=== PATIENT | female | born 1980 | race African-American/Black ===

== ENCOUNTER 2025-01-19 15:44 | Inpatient (IN) | payer OTHER, SELFPAY ==
[2025-01-19] VITALS (28 sets, daily range): BP systolic 122–204; BP diastolic 26–161; BMI 33.5
--- NOTE | 2025-01-19 11:25 | ED.GENMED ---
History of Present Illness
General
Chief Complaint: Abdominal Symptoms
Source: patient and other ([facility], [facility])
Exam Limitations: none
Time Seen by Provider: 01/19/25 11:19
History of Present Illness
History of Present Illness:
This patient is a 44-year-old female who was brought into police custody and placed in [facility] last night. She admits to a history of fentanyl with xylazine and cocaine use on a daily basis. She smokes approximately a bundle of fentanyl a day and
smokes cocaine. Last use was yesterday afternoon. She woke this morning and felt like she was experiencing withdrawal. She describes feeling restless associated with nausea and vomiting. She denies fever, chills, chest pain, shortness of breath,
abdominal pain. She went to the [facility], and as per VICKY Navarrete patient's blood pressure was 92/58 with a pulse of 114, and noted to have several episodes of nonbloody vomiting which prompted her referral to the emergency department. She was not
given any medications this morning. staff editor did not notice any lip or tongue swelling but noted her to be slightly diaphoretic.
Past History
Past History
ED Past Medical History: None
ED Past Surgical History: None
Social History
Tobacco: Smoker
Alcohol: None
Drug: Cocaine and Narcotics
Living: [facility]
Phy Exam
Physical Exam
Physical Exam:
GENERAL: Alert , appears uncomfortable
EYE: pupils equal and reactive
NECK: Supple, no significant adenopathy.
ENT: o/p clr, mmm, voice clear, no stridor, no drool.
CARDIAC: Regular rate and rhythm, slightly tachycardic.
LUNGS: Clear breath sounds bilaterally, no acute respiratory distress, no wheezes/rales/rhonchi
ABDOMEN: Soft, without focal tenderness, no r/g, no cvat
NEUROLOGICAL: Alert and oriented, no focal neuro deficits, moves all extremities equally
SKIN: Warm and slightly diaphoretic, skin intact.
MUSCULOSKELETAL: No edema, well perfused.
PSYCH: Appears uncomfortable, restless, continuously moving in the bed
Scores
COW Clinical Opiate Withdrawal Scale
Resting Pulse Rate: 81-100
Sweating-over past 30min not from room temp or activity: Beads of sweat on brow or face
Restlessness-observation during assessment: Frequent shifting or extraneous movements of legs/arms
Pupil Size: Pupils pinned or normal size for room light
Bone or Joint Aches: Not present
Runny Nose or Tearing-not accounted for by cold/allergies: Not present
GI Upset-over last 30min: Vomiting or diarrhea
Tremor-observation of outstretched hands: Slight tremor observable
Yawning-observation during assessment: No yawning
Anxiety or Irritability: Patient reports increasing irritability or anxiousness
Gooseflesh Skin: Skin is smooth
Score: 13
Withdrawal Severity: Moderate Withdrawal, consider starting Suboxone
Course
Orders/Labs/Results
Orders:
Orders
01/19/25 11:26
Acetaminophen [Tylenol] 1,000 mg PO NOW STA
Ketorolac [Toradol] 10 mg IV NOW STA
Ondansetron Injectable [Zofran] 4 mg IV NOW STA
Tizanidine [Zanaflex] 2 mg PO NOW STA
01/19/25 11:27
0.9% Sodium Chloride 1000 ml [Nss] 1,000 ml IV BOLUS
01/19/25 11:29
Diphenhydramine [Benadryl] 50 mg .ROUTE .STK-MED ONE
EPINEPHrine PF [Adrenalin] 1 mg .ROUTE .STK-MED ONE
Famotidine [Pepcid] 20 mg .ROUTE .STK-MED ONE
01/19/25 11:40
EPINEPHrine PF [Adrenalin] 0.3 mg IM NOW STA
01/19/25 11:41
Diphenhydramine [Benadryl] 50 mg IV NOW STA
Famotidine [Pepcid] 20 mg IV NOW STA
01/19/25 11:44
Cardiac Monitoring- Treatment ONCE
01/19/25 11:45
Electrocardiogram (*1) Urgent
Reason for Study: QTc Monitoring
EKG- Treatment ONCE
01/19/25 11:56
Buprenorphine [Subutex] 2 mg SL NOW STA
01/19/25 12:04
Buprenorphine HCl [Belbuca] 300 mcg BUCCAL NOW STA
01/19/25 12:50
Test Result ONCE
01/19/25 13:21
Complete Blood Count/No Diff Urgent
01/19/25 13:33
Comprehensive Metabolic Panel Urgent
HCG, Serum Qualitative Screen Urgent
Lipase Urgent
01/19/25 14:03
Ketorolac [Toradol] 10 mg IV NOW STA
Ondansetron Injectable [Zofran] 4 mg IV NOW STA
Tizanidine [Zanaflex] 2 mg PO NOW STA
01/19/25 14:08
EPINEPHrine PF [Adrenalin] 1 mg .ROUTE .STK-MED ONE
01/19/25 14:15
Diphenhydramine [Benadryl] 50 mg .ROUTE .STK-MED ONE
Famotidine [Pepcid] 20 mg .ROUTE .STK-MED ONE
Abnormal Lab Results
01/19/25
13:21
RBC 4.13 L 10^6/uL
(4.20-5.40)
Hct 34.5 L %
(37.0-47.0)
01/19/25 13:21
Vital Signs
Initial and Last Documented VS:
Initial Vital Signs
Temp Pulse Resp BP Pulse Ox
98.9 F 67 16 139/109 100
01/19/25 10:45 01/19/25 10:45 01/19/25 10:45 01/19/25 10:45 01/19/25 10:45
Last Documented Vital Signs
Temp Pulse Resp BP Pulse Ox
98.9 F 66 15 139/109 100
01/19/25 10:45 01/19/25 10:47 01/19/25 10:47 01/19/25 10:45 01/19/25 11:26
*Pulse Oximetry
SaO2: 100
Oxygen Mode of Delivery: Room air
Update Note
Update Note:
Patient presents to the Emergency Department with ____suspected opioid withdrawal
Number and Complexity of Problems Addressed at the Encounter
� Chronic conditions affecting care:
� Acute Exacerbation and/or Progression of Chronic Illness:
� Differential Diagnosis includes: But not limited to fentanyl withdrawal, xylazine/medetomidine withdrawal, cocaine withdrawal, dehydration, pancreatitis, etc. etc. etc.
Amount and/or Complexity of Data to be Reviewed and Analyzed
� I performed an independent evaluation of and my interpretation is:
EKG:
CT:
Xrays:
Laboratory Studies:
Other:
� Review of other/old records reveals:
� Clinical information was obtained by an independent historian: Discussed with VICKY Navarrete at the [facility] who saw patient this morning. She confirms that there was no facial swelling noted at that time. Female captain of guards who
is at bedside states that upon transport she noted mild lower lip swelling.
� Prescriptions/Medications Considered but not given:
� Further testing considered but not performed: 11:59 AM we have been unable to obtain labs at this time. We will continue to try to
Risk of Complications and/or Morbidity or Mortality of Patient Management
� Social determinants of health affecting care:
� Discussion with other providers (PCP, Hospitalists, Consultants, etc):
� Escalation of care including admission/observation vs risk of discharge considered: As RN was placing IV in right upper extremity, I was examining patient. I did note a very mild amount of lower lip swelling, but very mild
without associated symptoms or airway compromise. I left the room, and shortly after RN urgently called me back because patient was noted to have facial swelling. Upon my examination patient had massively increased lip swelling associated with
tongue swelling, and profuse diaphoresis. Patient was maintaining normal sats, no stridor, no drool. No swelling elsewhere noted. She was awake and alert and able to communicate with me. ED staff notified of urgency, airway equipment brought to
bedside while meds retrieved. Within just a few minutes, symptoms spontaneously improved such that she just has very mild lower lip swelling at this time. Patient received epi Benadryl and Pepcid after she was noted to be improved. (Meds were not
available yet while she was still very swollen). The only agents that patient was exposed to was chlorhexidine to clean the area, IV insertion, and saline flush. Patient has received saline in the past without reaction. She denies a history of
angioedema or allergies. She denies prescribed occasions. [facility] staff confirms she was not given any medications since arrival in the [facility] yesterday including this morning. Very close observation here, symptoms have not recurred. It is
unclear what precipitated this episode of severe lip and tongue swelling. She states this is never happened before. We will be very cautious regarding anything that we administer to her here. She is clearly experiencing opioid withdrawal and has
taken Suboxone in the past without difficulty. We will administer a low dose of Suboxone at this time and monitor closely
1:01 PM several reassessments, continues with mild lip swelling, no development increasing or change, airway stable, pulse ox normal, no stridor or drool. Buprenorphine was administered. Will continue to monitor closely.
225pm Pt developed another episode of angioedema, again lasting about 1-2 minutes and spont resolving. One more episode, now fulyl resolved.
ED Attending Note
-
Portions of this chart may have been created with voice recognition software.� Occasional wrong word or��sound alike� substitutions may have occurred due to the inherent limitations of voice recognition software.
Discharge Plan
Departure
Prescriptions:
No Action
clonidine HCl 0.1 mg Tablet
0.1 mg PO DIRECTED
Rx Instructions:
take 1 tablet tid then 1 tablet bid then half a tablet bid
ondansetron HCl [Zofran] 4 mg Tablet
4 mg PO TIDPRN PRN (Reason: nausea)
Rx Instructions:
give IM if npo
loperamide 2 mg Tablet
2 mg PO TIDPRN PRN (Reason: diarrhea)
acetaminophen-codeine 300-30 mg Tablet
1 tab PO DIRECTED
Rx Instructions:
take 2 tablets tid then 2 tablets bid then 1 tablet bid then 1 a tablet hs
Referrals:
[facility] [Family Provider, General]
Interventions
Interventions:
*Risk Screen - Suicide Last Done: 01/19/25 10:45
*General Assessment Last Done: 01/19/25 10:45
*Neglect/Abuse Screening Last Done: 01/19/25 10:45
*ED- Fall Risk Assessment Last Done: 01/19/25 10:45
*ED COVID-19 Vaccine History Last Done: 01/19/25 10:54
XT-Wlfpjs-Cfvmjpzytk Assessment Last Done: 01/19/25 10:52
Discharge Date and Time
Print Language: MAURITANIAN
[2025-01-19] MEDS: ADRENALIN 0.3 MG IM ×3 (11:42→20:35)
[2025-01-19] MEDS: PEPCID 20 MG IV ×2 (11:42→20:40)
[2025-01-19] MEDS: BENADRYL 50 MG IV ×2 (11:43→20:35)
[2025-01-19] MEDS: BELBUCA 300 MCG BUCCAL ×2 (12:33→19:49)
[2025-01-19] MEDS: NSS 1000 IV (13:13)
[2025-01-19 13:34] LABS: Hematocrit 34.5 % (37.0-47.0); Hemoglobin 12.1 g/dL (12.0-16.0); Mean Corp Hgb Conc. 35.1 g/dL (33.0-37.0); Mean Corpuscular Volume 83.5 fL (81.0-99.0); Platelet Count 365 10^3/uL (130-400); Red Cell Dist. Width 12.6 % (11.5-14.5)
[2025-01-19] MEDS: ZOFRAN 4 MG IV ×4 (14:27→23:37)
[2025-01-19] MEDS: DECADRON 10 MG IV (14:37)
--- NOTE | 2025-01-19 15:04 | HPS.HSE ---
Family Physician
-
Family Physician: Facility [facility]
Chief Complaint
-
Withdrawal episodes
History of Present Illness
This is a 44-year-old female with past medical history of hypertension, diabetes, substance abuse, who presents to [facility] after experiencing withdrawal symptoms this morning.� History obtained from patient at bedside, halfway guards and chart review.
The patient was brought in by halfway guards.� Patient admits to history of fentanyl with xylazine and cocaine use on a daily basis, with last usage <72hours prior to her arrest.� This morning while she was in halfway, she was experiencing withdrawal
episodes, symptoms including nausea, vomiting.� [facility], the nonbloody vomiting episodes continued.� She was not administered any medication at the [facility] and was sent straight to [facility] ED for evaluation.
Vitals upon presentation to ED with BP 139/109, pulse 67, temperature 98.9, respiratory rate 16, O2 sats 100% on room air. In ER, patient noted to have clinical withdrawal with COWS of 13
While in the ED, the patient began to have multiple transient episodes of increased lip swelling still with tongue swelling and diaphoresis.� The first episode occurred within hours of arrival, which resolved within few minutes on its own.� She was
administered epi, Benadryl and Pepcid although these were given after her symptoms have improved.
Prior to the angioedema episode, the only medication the patient was exposed to was chlorhexidine to clean IV site and saline flush.� Patient denies history of angioedema.� Dad at bedside confirms was never given any medication prior to arrival, no
angioedema episode in the halfway as well. �The patient was noted to have 2 more episodes of mild lip swelling in the ED which fully resolved on its own.� In the ED, she was administered Buprenorphine. �Patient will be admitted to the ICU for opioid
withdrawal symptoms.
Medical History
Past Medical History
Past Medical History: Reports Other (Hypertension, diabetes)
Past Surgical History: Reports None
Social History
Tobacco: Smoker
Alcohol: None
Drug: Cocaine, Narcotics and Other
Living: Retirement
Family History
Family History: Not pertinent
Allergies / Home Medications
Allergies reflects when Allergies were last updated in [facility].
Home Medications with original date entered in [facility]
Allergy/Medication List:
Allergies
Allergy/AdvReac Type Severity Reaction Status Date / Time
No Known Allergies Allergy Unverified 01/19/25 10:43
Home Medications
acetaminophen 300 mg-codeine 30 mg tablet 1 tab PO DIRECTED 01/19/25
clonidine HCl 0.1 mg tablet 0.1 mg PO DIRECTED 01/19/25
loperamide 2 mg tablet 2 mg PO TIDPRN PRN diarrhea 01/19/25
ondansetron HCl 4 mg tablet 4 mg PO TIDPRN PRN nausea 01/19/25
Review of Systems
-
A 12 point ROS was completed and negative except as noted: Yes
Physical Exam
Vital Signs
Vital Signs
Temp Pulse Resp BP Pulse Ox
98.9 F 86 23 138/114 100
01/19/25 10:45 01/19/25 14:45 01/19/25 14:45 01/19/25 14:19 01/19/25 14:45
Physical Exam
General: Sweats
HEENT: NormoCephalic, PERRLA and Other (mild edema of the upper and lower lips, nontender, no erythema, no facial rash, no angioedema involving eyes)
Respiratory: Clear
Cardiac: S1/S2, Regular Rhythm and Tachycardia
GI: Soft, Non Tender and Non Distended
Musculoskeletal: No Edema
Neuro: Awake, Alert, Oriented and AO x 3
Psych: Calm
Laboratory Results
-
01/19/25 13:21
Laboratory Results
Total Bilirubin Cancelled 01/19/25 14:25
AST Cancelled 01/19/25 14:25
ALT Cancelled 01/19/25 14:25
Alkaline Phosphatase Cancelled 01/19/25 14:25
Lipase Cancelled 01/19/25 14:25
Impression/Plan
-
Assessment/plan
#Opioid withdrawal in the setting of polysubstance use (fentanyl, xylazine, cocaine)
-Continue buprenorphine for opioid withdrawal
-Monitor COWS score
-Clonidine as needed for autonomic symptoms
-antiemetics, pain control with Tylenol.
-Service Superintendent consult
#Transient lip/tongue swelling episodes
-?Etiology unknown, as episodes occurred prior to medication administration
-Antihistamines, epinephrine as needed
-Monitor for recurrence, continue close airway surveillance
-ENT and Anesthesia teams have been informed given concern for a tenuous airway
-Speech eval prior to feeds
#Essential Hypertension
#DM
-Diet controlled per patient
-Coverage with SSIs, [employer]
-Update A1C
CODE STATUS full code
DVT prophylaxis SCDs
--- NOTE | 2025-01-19 15:05 | W.PN.UPDATE ---
Update Note
Progress Note Update
I have personally supervised the history, physical exam, medical decision-making, and care plan for this patient in conjunction with the�resident. I have reviewed and discussed the�resident�s documentation and findings. I confirm that this note
accurately reflects my supervision and input in the care of this patient
Comment: 44 y/o F, hx of bipolar disorder, substance abuse, diabetes managed by diet, Essential HTN (not on meds) presents to ER from local skilled nursing with withdrawal symptoms. Patient in police custody - placed into skilled nursing last evening. Admits to using
Fentanyl/Xylazine/Cocaine daily - last used a bundle hours prior to imprisonment yesterday afternoon. This morning woke up with withdrawal symptoms - restless, nausea with vomiting. Sent to the [facility] where noted to be hypotensive and tachycardia
and sent to ER for evaluation. Not administered any meds during skilled nursing stay; skilled nursing RN reported to ER that patient did not exhibit any angioedema symptoms.
In ER, patient noted have clinical withdrawal with COWS of 13 - received Belbuca, Tizanidine, Zofran, Tylenol, Toradol. After IV placement (using Chlorhexidine and saline flushes) patient developed lip angioedema requiring urgent steroids, epi,
pepcid and Benadryl. Symptoms resolved after 2 episodes. She subsequently developed 2 additional episodes of angioedema that have currently resolved. Patient did eat in ER.
ENT/ICU and Anesthesia consulted - patient to be admitted to ICU for closer monitoring.
Exam:
GENERAL: Alert , appears uncomfortable, slight tremors
EYE: pupils equal and reactive
NECK: Supple, no significant adenopathy.
ENT: o/p clr, mmm, voice clear, no stridor, no drool. Lips with mild swelling, no significant angioedema
CARDIAC: Regular rate and rhythm, slightly tachycardic.
LUNGS: Clear breath sounds bilaterally, no acute respiratory distress, no wheezes/rales/rhonchi
ABDOMEN: Soft, without focal tenderness, no r/g, no cvat
NEUROLOGICAL: Alert and oriented, no focal neuro deficits, moves all extremities equally
SKIN: Warm and slightly diaphoretic, skin intact.
MUSCULOSKELETAL: No edema, well perfused.
PSYCH: Appears uncomfortable, restless, continuously moving in the bed
Plan:
acute Opioid withdrawal
- initiate withdrawal protocol
- COWS scores per protocol
- Subutex prn
- supportive meds such as tizanidine, clonidine, Zofran etc ordered
Recurrent angioedema
- unclear inciting agent but suspect more likely illicit drugs (fentanyl/cocaine cut with Xylazine) rather than Chlorhexidine and saline flushes; could also be psychogenic
- continue IV solu-Medrol q12h, Pepcid q12h, prn Benadryl
- Prn Epi available at bedside - reviewed with ICU pharmacist
- ENT and Anesthesia aware of tenuous airway situation
- ICU consult
Rest of plan as outlined in Resident (Dr. Sundeep Strickland's) note.
Total Critical Care Time 40 minutes. I was immediately available to the patient and staff. I personally examined, reviewed labs, diagnostic images/reports, interpretations, treatment plans, discussed patient care with other providers and family
or caregivers (if patient is unable to make decisions), entered orders as appropriate and documented the medical record.
[2025-01-19 16:47] LABS: HCG, Serum Qualitative Screen Negative
[2025-01-19 16:54] LABS: ALT (SGPT) 13 U/L (0-35); AST (SGOT) 24 U/L (14-36); Albumin 4.2 g/dl (3.5-5.0); Alkaline Phosphatase 76 U/L (38-126); Blood Urea Nitrogen 5 mg/dl (7-17); Calcium 9.3 mg/dl (8.4-10.2); Carbon Dioxide 29 mmol/L (22-30); Chloride 103 mmol/L (98-107); Estimated Creatinine Clearance > 125 ml/min; Glucose 126 mg/dl (70-99); Lipase 101 U/L (23-300); Potassium 3.1 mmol/L (3.5-5.1); Sodium 140 mmol/L (135-145); Total Protein 7.7 g/dl (6.3-8.2); eGFR > 60.00
--- NOTE | 2025-01-19 17:44 | CON.INTV ---
Consultation
Consultation Request
Date/Time Consultation Requested: 01/19/2025
Date/Time Consultation Performed: 01/19/2025
Requesting Provider: Dr. Arriola
Performing Provider: Dr. Saurabh Palacio
Reason for Consultation: Acute angioedema
Medical History
-
Chief Complaint: Shortness of breath
History of Present Illness:
44-year-old female with past medical history significant for hypertension, type 2 diabetes, polysubstance abuse, presented from [facility] after experiencing withdrawal symptoms this morning.
Chart reviewed.
Patient uses fentanyl and xylazine and cocaine on a daily basis, last uses less than 72 hours prior to arrest.
Withdrawal symptoms at detention including nausea, vomiting. Developed nonbloody vomiting. Then sent for emergency room evaluation.
Upon arrival she was hemodynamically stable not requiring oxygen therapy.
While in the emergency room developed lip/tongue swelling which were severe associated with diaphoresis. Self resolve initially.
First event resolved within minutes.
She was given epinephrine, Benadryl, Pepcid and steroids.
Prior to these episodes no medications were prescribed in the emergency room.
Patient denies prior history of similar events.
Episodes recurred twice.
Critical care was called for evaluation and admission for monitoring of airway.
After 1 hour observation in the emergency room no further episodes noted.
Currently on room air
Not short of breath
Not bronchospastic
Hemodynamically stable.
Past Medical History
Past Medical History: Other (see Assessment and plan)
Social History
Tobacco: Smoker
Alcohol: None
Drug: Other (Cocaine, fentanyl, Ciloxan)
Family History
Family History: Reviewed & Not Pertinent
Allergies / Home Medications
Allergies
Allergy/AdvReac Type Severity Reaction Status Date / Time
No Known Allergies Allergy Unverified 01/19/25 10:43
Home Medications
�Medication �Instructions �Recorded �Confirmed �Last Taken �Type
acetaminophen 300 mg-codeine 30 mg 1 tab PO DIRECTED 01/19/25 01/19/25 Unknown History
tablet
clonidine HCl 0.1 mg tablet 0.1 mg PO DIRECTED 01/19/25 01/19/25 Unknown History
loperamide 2 mg tablet 2 mg PO TIDPRN PRN diarrhea 01/19/25 01/19/25 Unknown History
ondansetron HCl 4 mg tablet 4 mg PO TIDPRN PRN nausea 01/19/25 01/19/25 Unknown History
Review of Systems
-
Unable to Obtain full review of systems at this time due to: Acuity
Vitals / Labs / Diagnostic Testing
Vital Signs
Temp Pulse Resp BP Pulse Ox
98.9 F 84 27 164/86 100
01/19/25 10:45 01/19/25 16:15 01/19/25 16:15 01/19/25 15:00 01/19/25 15:00
Diagnostic Testing:
Physical Exam
-
HEENT: Normocephalic and Other (No evidence for angioedema.)
Cardiovascular: S1/S2 and Other (No stridor on exam)
Respiratory: Clear and Non-Labored Respirations
GI: Soft and Non Distended
Neurology: Awake and Alert
Skin: Warm
General: Comfortable
Assessment
-
44-year-old woman with history of drug abuse, sent from senior living for opiate withdrawal symptoms including nausea or vomiting. While in the emergency room patient developed angioedema type findings. Initially transient. Associated with some
increased work of breathing. Resolved after several minutes initially spontaneously. We were consulted for evaluation and admission to the critical care unit for close airway monitoring.
Acute angioedema (lip/tongue swelling episodes in the emergency room)-unclear etiology
Opiate withdrawal
Conditions present prior admission:
Smoker
Cocaine/fentanyl/xylazine abuse
Hypertension
Diabetes
Assessment and plan:
At this point patient without stridor, no evidence for angioedema.
Not bronchospastic on exam
Status post epinephrine in the emergency room
Continue Benadryl as needed
Continue famotidine
Continue IV methylprednisolone, hopefully short course
Anesthesia and ENT aware of case.
-
Opiate withdrawal
Continues protocol for symptomatic management
Cardiac monitoring
Daily electrolytes
May need psychiatry evaluation
Will add Ativan as needed for anxiety
Continue antiemetics as needed
-
Hypertension
Clonidine restarted
-
N.p.o. for now
Head of the bed elevation
-
High risk situation: Continue ICU monitoring for possibility of airway compromise and high risk intubation.
-
Critical care statement: A total of 31 minutes of critical care time was provided for this patient today. This includes management of unstable vital signs, evaluation of the patient at bedside, reviewing the patient's pertinent medical records
including ventilator settings, arterial blood gases, radiographs, microbiology, laboratory evaluations and discussion with primary team, critical care nursing, and respiratory therapy.-
[2025-01-19] MEDS: CATAPRES 0.1 MG PO (17:45)
--- NOTE | 2025-01-19 18:24 | CON.MD ---
Consultation - Medical
-
Chief complaint: Recurrent angioedema
History of present illness: This patient is a 44-year-old woman with a history of opioid abuse who began incarceration yesterday and experienced tongue and lip swelling today which was recurrent and occurring and resolving in rapid cycling fashion.
The patient is currently doing well. She is in the ICU. She is able to close her teeth and her lips and her tongue is not protruding from her mouth. She was given multiple medications earlier and seems to be doing better.
Past medical history:
Allergies: No known drug allergies
Home medications: Acetaminophen/codeine 1 tablet p.o. as needed, clonidine 0.1 mg p.o. as needed, loperamide 2 mg p.o. 3 times daily as needed, Zofran 4 mg p.o. 3 times daily as needed
Chronic medical problems: History of opioid abuse
Family history: Noncontributory, asked
Review of systems: No shortness of breath or respiratory distress
Physical examination:
Head: Atraumatic and normocephalic
Eyes: Extraocular movements are intact
Ears: Normal
Nose: Normal
Oral cavity/oropharynx: No significant lip or tongue swelling currently. She is able to rest with her lips and teeth closed and her tongue does not protrude.
Neck: Supple without adenopathy
Assessment/plan: The patient is currently stable and will continue supportive treatment. You can call if there are concerns regarding the patient.
Consultation
-
Date/Time Consultation Requested: 01/19/25 2pm
Date/Time Consultation Performed: 01/19/25 6p
Requesting Provider: ER
Performing Provider: Amber
Reason for Consultation: angioedema
[2025-01-19 18:28] LABS: Glucose - Point of Care 133 mg/dl (70-99)
[2025-01-19] MEDS: KCL 270 MEQ IV (18:28)
--- NOTE | 2025-01-19 19:00 | PTCARENOTE ---
Pt arrived to the ICU @1744 w/shackles to B/L ankles. #2 senior care guards present on arrival. She was diaphoretic and severely tremulous. Vomited green bilious secretions, was shortly wheezing after vomiting, moist cough and wheeze resolved. She was
informed of the plan of care. She nodded her head in understanding. She was primarily non-verbal and just nodded her head yes or shook her head no. Once she verbalized her birthday. She would not verbalize her needs. Right FA#22g and right upper arm
#20g protective catheter flushed and patent with blood return. Pupils are +5, yawning & producing tears in addition to vomiting & tremors. COWS 25. Medicated as ordered with Zofran. Lungs with poor inspiratory effort, RA pulse ox 94%. Absent BSX4.
It was discovered that she typically moves her bowels every 4 days but it has been >4 days since her last BM. CHG bath performed and her face wiped off multiple times due to severe diaphoresis. Safe environment maintained. She was placed on suicide
1:1 when she admitted to suicidal thoughts in the last 2 weeks and felt down, depressed and hopeless. Supportive care provided. Will continue to monitor. Plan of care discussed with Dr. Zamora, Dr. Clark & Dr. Arriola. Elvira DONATO was TT'd
regarding her positive suicidal screen. SHe was placed on suicide 1;1 observation @ 1830 & nursing resident services supervisor notified.
[2025-01-19] MEDS: TRANDATE 10 MG IV (19:23)
[2025-01-19] MEDS: TYLENOL PO (19:23)
[2025-01-19] MEDS: COMPAZINE 5 MG IV (19:48)
[2025-01-19 19:58] LABS: Magnesium 1.4 mg/dl (1.6-2.3)
[2025-01-19] MEDS: NSS (PRESERVATIVE FREE) 8 ML IV (20:41)
[2025-01-19] MEDS: MAGNESIUM SULFATE 50 IV (20:50)
[2025-01-19] MEDS: CARDENE 200 IV (20:51)
[2025-01-19] MEDS: SOLU-MEDROL PF 40 MG IV (20:51)
[2025-01-19] MEDS: VALIUM INJECTION 5 MG IV (21:51)
[2025-01-19] MEDS: PRECEDEX 100 IV (23:37)
[2025-01-20] VITALS (68 sets, daily range): BP systolic 106–168; BP diastolic 65–123; BMI 31.5
[2025-01-20] MEDS: TYLENOL PO (00:06)
[2025-01-20] MEDS: OXYCONTIN (CONTROLLED RELEASE) PO (00:06)
[2025-01-20] MEDS: BELBUCA BUCCAL ×3 (00:08→08:24)
--- NOTE | 2025-01-20 00:23 | PTCARENOTE ---
Late entry: Assumed care of pt at 1900. Unable to assess pt's orientation as she has been non-verbal--will occasionally nod/shake head yes/no appropriately but most often she just stares and gives no indication if she actually understands what is
being said to her. Able to follow commands but does not always do so (again will just stare). COWS protocol ongoing. Assessment as documented in nursing shift assessment flowsheet. ST on monitor, mostly 110s-130s, when calm was SR 80s-90s although
this was only for a brief period. Pt shackled to bed by handcuff on right ankle, [facility] guards (2) at bedside, pt is 1:1 observation for SI.
~2029: guard came out of room to notify staff that pt's lips/tongue were swelling--upon entering room pt was tachypneic and more tachycardic, lips obviously more edematous and tongue protruding. SPIKE MACHINE OPERATOR at bedside. Benadryl and epinephrine administered,
see EMAR, scheduled Pepcid and Solumedrol administered as well. Symptoms resolved quickly, before meds were even fully administered.
~0: Pt's BP continued to be elevated with systolic in 170s-190s despite Labetolol being administered at end of previous shift. In light of epinephrine just being given and present HTN, ICU SPIKE MACHINE OPERATOR ordered Cardene drip. See med titration flowsheet for
details on titrations.
~2150: Pt started with lip/tongue swelling/tachypnea/tachycardia again, discussed with ICU SPIKE MACHINE OPERATOR Ganesh Shultz, advised to give Valium. Pt then given full soap and water bath due to gross urinary incontinence and diaphoresis. Linens and gown changed.
Purewick placed.
~2330: Pt nodded when asked if she felt she could take po meds (scheduled midnight meds and PRN Zanaflex), but before I could give them to her she vomited green bilious emesis all over the front of herself. Zofran administered, discussed with ICU SPIKE MACHINE OPERATOR
that po meds could not be given at this time including scheduled meds for COWS protocol. Decision made to start Precedex drip. Pt cleaned up again, gown and linens changed.
At this time pt continues to be tachycardic in 130s, tachypneic, tremulous. SpO2 100% on RA.
[2025-01-20] MEDS: BELBUCA 300 MCG BUCCAL ×5 (01:35→15:53)
[2025-01-20] MEDS: CARDENE 200 IV ×6 (02:04→21:33)
--- NOTE | 2025-01-20 04:03 | PTCARENOTE ---
Assessment unchanged. Remains on Precedex and Cardene drips. COWS protocol ongoing. Able to administer midnight dose of buprenorphine at around 0130 (see EMAR), as pt's nausea was resolved at that time. Still intermittently endorsing that she has
nausea but has not vomited since the episode around 2330. Pt will have episodes where she has bursts of tachycardia up to the 180s and her tremors and sweating are more pronounced, but these episodes have been resolving on their own, and HR will go
back down to 120s-130s (mostly 130s is where she has been sustaining). Pt continues to be non-verbal and will only nod/shake head yes/no. Pt has been cleaned up several times throughout the shift. Purewick working well. Remains shackled to the bed,
guards at bedside.
[2025-01-20 04:25] LABS: Hematocrit 37.3 % (37.0-47.0); Hemoglobin 13.0 g/dL (12.0-16.0); Mean Corp Hgb Conc. 34.9 g/dL (33.0-37.0); Mean Corpuscular Volume 82.3 fL (81.0-99.0); Nucleated Red Blood Cells % 0 %; Platelet Count 412 10^3/uL (130-400); Red Cell Dist. Width 12.6 % (11.5-14.5)
[2025-01-20 04:29] LABS: INR 1.04; PT 14.1 Sec (11.4-14.6)
[2025-01-20 04:30] LABS: APTT 28.8 Sec (23.4-35.0)
[2025-01-20 04:46] LABS: Blood Urea Nitrogen 4 mg/dl (7-17); Calcium 10.0 mg/dl (8.4-10.2); Carbon Dioxide 26 mmol/L (22-30); Chloride 101 mmol/L (98-107); Estimated Creatinine Clearance > 125 ml/min; Glucose 142 mg/dl (70-99); Magnesium 2.0 mg/dl (1.6-2.3); Potassium 3.1 mmol/L (3.5-5.1); Sodium 138 mmol/L (135-145); eGFR > 60.00
[2025-01-20] MEDS: KCL 270 MEQ IV (05:49)
--- NOTE | 2025-01-20 06:38 | PTCARENOTE ---
Went into room, pt sitting up on side of bed, had indicated to guards that she had to go to the bathroom. Purewick removed, pt ambulated with standby assistance to BR, steady gait, linens and pads changed on bed, pt nodded head yes that she wanted
the Purewick left off for now. Pt now back in bed. Remains on Cardene and Precedex drips.
--- NOTE | 2025-01-20 07:20 | PTCARENOTE ---
Received pt in suicide 1:1 observation w/#2 detention guards at the bedside and her right ankle shackled to the bed frame. She opened her eyes to verbal and tactile stimuli. I informed her of the plan of care & the purpose of the medication regimen
prescribed for her to lessen the symptoms of withdrawal to mitigate hemodynamic symptom. Right FA#22g protective atheter with Precedex, Cardene @ potassium rider. Good peripheral pulses. Face flushed, following COWS protocol. Pt was informed to
notify the RN for any worsening symptoms of withdrawal prior to me assessing her. She nodded her head in understanding. Safe environment maintained. Will continue to monitor and provide supportive care.
--- NOTE | 2025-01-20 07:29 | W.PN.HOSP.TC ---
Today's Communication/Plan
-
see a/p
Assessment / Plan
Assessment / Plan
Initial Angioedema as noted in ED since spontaneously resolved. Unclear etiology
Physical Exam
General: Appears relatively comfortable at this time
HEENT: NormoCephalic, Pinpoint pupils b/l, possible mild swelling lips noted but significantly improved in comparison to initial Angioedema as noted above
Respiratory: Clear
Cardiac: S1/S2, Regular Rhythm and Tachycardia systolic murmur /
GI: Soft, Non Tender and Non Distended
Musculoskeletal: No Edema extremities
Neuro: Lethargic but arousable limited nonverbal communications via head gestures (yes/no) following simple commands
Psych: Calm
44F from [facility] w/ hx HTN NIDDM substance abuse p/w opioid withdrawal and transient severe angioedema unclear etiology.
#Opioid withdrawal in the setting of polysubstance use (fentanyl, xylazine, cocaine)
-ICU admit
-Tox screen positive for Fentanyl and Cocaine
-Continue buprenorphine for opioid withdrawal
-Monitor COWS score
-Scheduled Clonidine 0.1 mg Q8
-prn antiemetics, valium
-scheduled Tyelnol 1000 mg Q8
-Hr Shared Services Consultant consult appreciated
-precedex gtt wean as tolerated
#Transient lip/tongue swelling Angioedema as noted in ED/pictured above
-unclear etiology, since resolved
-Cont steroids Anastasiya-medrol 40 mg Q12 and IV Pepcid 20 mg Q12 for now
-Benadryl, Epinephrine prn
-Monitor for recurrence, continue close airway surveillance
-ENT eval appreciated
-Speech eval appreciated
#systolic Murmur
no significant Valve abn's noted on ECHO
#intermittent fevers
suspect 2/2 to opiate withdrawal vs cocaine vs Viral Syndrome
Procal neg, checking blood cultures but continuing to monitor off abx for now
#Sinus Tachy
likely opiate withdrawal vs cocaine use vs (less likely) viral syndrome
stable respiratory status on room air, D-dimer elevation mild, hold off on CTA chest evaluation for now
cont tx opiate withdrawal as above
#Leukocytosis
suspect steroid induced vs stress reactive
trend
#Hypertensive Urgency/Emergency
nicardipine gtt wean as tolerated
IV labetalol prn
Scheduled Clonidine as above
#reported hx DM
-updated A1c 6.3 Prediabetes
-cont sliding scale for now while on steroids
#Hypokalemia
#Hypomagnesemia
monitor and replete as necessary
CODE STATUS full code
DVT prophylaxis SCDs Lovenox
Total Critical Care Time__50___ minutes. I was immediately available to the patient and staff. I personally examined, reviewed labs, diagnostic images/reports, interpretations, treatment plans, discussed patient care with other providers and
patient, entered orders as appropriate and documented the medical record.
Anticipated Discharge: 24 - 48 hours
Subjective/Interval History
-
Date of Service: January 20, 2025
Lethargic but arousable limited communications mostly through head gestures, nodding/shaking head in answer to yes/no questions. Otherwise appears comfortable at this time.
Objective Data
-
Labs:
Laboratory Results
01/20/25
03:28
WBC 16.4 H
Hgb 13.0
Hct 37.3
Plt Count 412 H
PT 14.1
INR 1.04
APTT 28.8
Sodium 138
Potassium 3.1 L
Chloride 101
Carbon Dioxide 26
BUN 4 L
Creatinine 0.5 L
Glucose 142 H
Calcium 10.0
Vital Signs:
Vital Signs
Temp Pulse Resp BP Pulse Ox
100.0 F 137 26 145/109 100
01/20/25 05:17 01/20/25 06:00 01/20/25 06:00 01/20/25 06:00 01/20/25 06:00
I&O
01/19/25 01/20/25 01/21/25
06:59 06:59 06:59
Intake Total 1012.8 / 1012.8
Output Total 1125 / 1125
Balance -112.2 / -112.2
[2025-01-20] MEDS: PRECEDEX 100 IV (07:55)
[2025-01-20] MEDS: OXYCONTIN (CONTROLLED RELEASE) 40 MG PO ×2 (07:56→15:53)
[2025-01-20] MEDS: TYLENOL 1000 MG PO ×2 (07:57→15:53)
[2025-01-20] MEDS: NSS (PRESERVATIVE FREE) 8 ML IV ×2 (07:57→19:58)
[2025-01-20] MEDS: PEPCID 20 MG IV ×2 (07:57→19:58)
[2025-01-20 08:15] LABS: Glucose - Point of Care 118 mg/dl (70-99)
--- NOTE | 2025-01-20 09:20 | W.PN.UPDATE ---
Update Note
Progress Note Update
Lethargic but arousable. Nausea persists. Appetite loss. Denies pain
3/6 heart murmur on auscultation, noted fever overnight 100.4 (possibly cocaine induced) since resolved, wbc elevated this morning 16 (possibly steroid induced), sinus tachy 130s (possibly d/t withdrawal vs recent Cocaine use tox pos)
Stable respiratory status on room air
-checking Lactic acid, D dimer, procalcitonin, blood cultures, ECHO
-IVF support while NPO
-will consider CTA chest if D dimer elevated
[2025-01-20 09:32] LABS: Glycohemoglobin (HgbA1c) 6.3 % (4.0-5.6)
[2025-01-20] MEDS: SOLU-MEDROL PF 40 MG IV ×2 (10:19→21:34)
[2025-01-20] MEDS: NSS 1000 IV (10:29)
[2025-01-20 10:44] LABS: Procalcitonin < 0.05 ng/ml (0.0-0.25)
[2025-01-20 11:01] LABS: D-Dimer 0.56 ug/mlFEU (0.00-0.50)
[2025-01-20] MEDS: CATAPRES 0.1 MG PO ×3 (11:15→15:53)
--- NOTE | 2025-01-20 11:40 | PTCARENOTE ---
Ambulatory to the BR with shackles on both ankles. Female guard & RN remained within arms reach with supervision. She was steady on her feet and had voided a large amount of urine. She was not SOB. Breath sounds continue to be dim throughout but
right base absent breath sounds. She was encouraged to take deeper breaths. When asked she nodded her head yes that she was comfortable and did not feel anxious or restless. She also denied nausea. Remains non-verbal by her choice. Safe environment
maintained. Will continue to monitor.
[2025-01-20 12:09] LABS: Glucose - Point of Care 106 mg/dl (70-99)
--- NOTE | 2025-01-20 12:43 | W.PN.INTV ---
Today's Communication / Plan
Recommendations
Continue opiate withdrawal symptoms controlled with medications
Precedex-will attempt to wean off
Continue IV Solu-Medrol
Continue famotidine
As needed Benadryl and epinephrine if angioedema recurs
Echocardiogram
Monitor for fevers
Antihypertensives-clonidine
IV labetalol as needed
Remaining critical care for now
Assessment
-
44-year-old woman with history of drug abuse, sent from [facility] for opiate withdrawal symptoms including nausea or vomiting. While in the emergency room patient developed angioedema type findings. Initially transient. Associated with some
increased work of breathing. Resolved after several minutes initially spontaneously. We were consulted for evaluation and admission to the critical care unit for close airway monitoring.
Acute angioedema (lip/tongue swelling episodes in the emergency room)-unclear etiology
Opiate withdrawal
Leukocytosis-possibly stress-induced
Low-grade fevers-? From withdrawal
Heart murmur-unknown chronicity
Uncontrolled hypertension-unknown whether patient has chronic hypertensive disease.
Conditions present prior admission:
Smoker
Cocaine/fentanyl/xylazine abuse
Hypertension
Diabetes
Assessment and plan:
-
Overnight with a brief episode of angioedema-self resolved after Benadryl.
Unclear etiology of angioedema
Currently without stridor
Not requiring oxygen supplementation
Appears comfortable, not bronchospastic on exam
Continue IV Solu-Medrol for today
Continue famotidine for today
Benadryl as needed
Epinephrine as needed
May use racemic epinephrine nebulized if necessary as well.
Speech evaluation-she was able to swallow pills.
-
ENT evaluated the patient as well.
Aware of the case
If needed intubation she will be difficult airway
-
Opiate withdrawal-symptoms ongoing.
Currently on Precedex drip will try to wean off
Patient received some oxycodone extended release on a tapering dose per protocol.
Continues protocol for symptomatic management
Cardiac monitoring
Daily electrolytes
Psychiatry evaluation when able.
Continue diazepam as needed
Continue antiemetics as needed
-
Hypertension-uncontrolled. Uncertain whether patient has underlying diagnosis.
Continue clonidine
Labetalol as needed
-
Heart murmur-unknown chronicity
Low-grade fevers and leukocytosis in this patient with drug abuse.
Suspect leukocytosis from steroids.
Agree with echocardiogram and obtaining blood cultures
-
Electrolytes being repleted
Repeat sodium and magnesium later today
-
N.p.o. for now
Speech evaluation
Head of the bed elevation
-
High risk situation: Continue ICU monitoring for possibility of airway compromise and high risk intubation.
-
Discussed with primary team
-
Critical care statement: A total of 32 minutes of critical care time was provided for this patient today. This includes management of unstable vital signs, evaluation of the patient at bedside, reviewing the patient's pertinent medical records
including ventilator settings, arterial blood gases, radiographs, microbiology, laboratory evaluations and discussion with primary team, critical care nursing, and respiratory therapy.-
Subjective Dataa
Subjective Data
Date of Service:
Date of Service: January 20, 2025
Chief Complaint: Practice Administrator Follow Up (Angioedema/opiate withdrawal)
Subjective:
Patient offers no significant complaints
She was able to swallow pills
Overnight remained stable
For behavior control required Precedex drip.
Review of Systems
General: Fever (Low-grade) and Other (Difficult to obtain, withdrawal symptoms ongoing)
Objective Data
Data Reviewed
Vital Signs / I&O / Oxygen:
Vital Signs
Temp Pulse Resp BP Pulse Ox
100.9 F H 126 17 157/79 100
01/20/25 11:35 01/20/25 11:15 01/20/25 11:15 01/20/25 11:15 08/07/25 11:15
Intake and Output
01/19/25 01/20/25 01/21/25
06:59 06:59 06:59
Intake Total 1012.8 / 1142.0 883.8 / 883.8
Output Total 1125 / 1125
Balance -112.2 / 17.0 883.8 / 883.8
SaO2 100
Physical Exam
General: Comfortable
HEENT: Normocephalic
Cardiovascular: S1-S2 and Murmur
Respiratory: Clear and Non-Labored Respirations
GI: Soft and Distended
Neurology: Awake, No Motor Deficits and Other (Mostly nonverbal but following commands.)
Skin: Warm
Labs/Micro/Reports
Lab Data
01/20/25 03:28
01/20/25 03:28
Laboratory Results
01/20/25
03:28
PT 14.1
INR 1.04
APTT 28.8
--- NOTE | 2025-01-20 13:39 | PTOTSP ---
Speech Therapy Evaluation:
Pt presents with signs concerning for oral > pharyngeal dysphagia, likely acute in relation to opioid withdrawal, resulting in AMS/lethargy. Oral deficits characterized by initial inability to pull liquid from straw and anterior loss of bolus. No
overt s/sx of aspiration, however assessment limited with pt declination of puree and regular textures. CXR without pneumonia and pt on room air. No dysphagia hx. Suspect improvement in swallow function as mentation improves.
Recommend:
1. IDDSI Level 0 (thin liquids)
2. Medications crushed in puree versus as best tolerated when fully awake/alert
3. Strict aspiration precautions
4. 1:1 supervision and assistance with intake
5. Only feed when awake, alert, accepting
6. SOLAR INSTALLER to follow to monitor tolerance of diet, assess candidacy for solid initiation, and determine if pt would benefit from instrumental assessment
--- NOTE | 2025-01-20 14:38 | PTCARENOTE ---
PRN dose of Clonidine administered. Cardene continues to infuse @ 10mg/hr via left midline. She is cooperative with care.
--- NOTE | 2025-01-20 14:56 | CM ---
Patient was in [facility] and began with withdrawal symptoms. Was transported to [facility] ER. Currently not speaking. Nods head. Weaning Precedex, IV/Solu-Medrol, Episodes of angioedema of lips and tongue, tachy at intervals, vomiting bilious material at
intervals. Discharge POC: [facility] BCARES notified.
[2025-01-20 16:31] LABS: COVID-19 Antigen Negative (Negative)
[2025-01-20 17:07] LABS: Glucose - Point of Care 114 mg/dl (70-99)
[2025-01-20] MEDS: LOVENOX 40 MG SC (17:37)
[2025-01-20] MEDS: SUBUTEX 2 MG SL ×2 (17:38→21:33)
--- NOTE | 2025-01-20 17:44 | PTCARENOTE ---
Continues to be cooperative w/care and medication administration. SHe was found to be laying on her side sucking her thumb after Suboxone was given SL. Safe environment maintained. Will continue to monitor.
[2025-01-20] MEDS: ROXICODONE 20 MG PO (19:59)
--- NOTE | 2025-01-20 20:16 | PTCARENOTE ---
Assumed care of pt at 1900. Pt has mostly been resting with eyes closed but is easily arousable to voice and cooperative with care, has been responding verbally in a whisper when asked questions, and will elaborate on her answers (not just yes or
no). Pt denies nausea but reports pain all over, medicated with PRN oxycodone, see EMAR. Able to take pills whole with sips of apple juice. COWS protocol ongoing, has been scoring lower overall. Received pt on Cardene at 7.5mg/hr, BP has been in
140s since start of shift. ST 120s-130s on monitor, SpO2 100% on RA. Assessment as documented in nursing shift assessment flowsheet. Pt shackled to bed by right ankle, 2 [facility] guards at bedside.
[2025-01-20] MEDS: CATAPRES 0.2 MG PO (21:33)
[2025-01-20] MEDS: ZANAFLEX 2 MG PO (21:33)
[2025-01-20 23:21] LABS: Glucose - Point of Care 102 mg/dl (70-99)
[2025-01-21] VITALS (18 sets, daily range): BP systolic 114–163; BP diastolic 64–145; BMI 31.1
[2025-01-21] MEDS: NSS 1000 IV (00:17)
[2025-01-21] MEDS: TYLENOL 1000 MG PO ×2 (00:18→08:57)
[2025-01-21] MEDS: OXYCONTIN (CONTROLLED RELEASE) 40 MG PO ×3 (00:18→15:09)
--- NOTE | 2025-01-21 01:27 | PTCARENOTE ---
Assessment unchanged. Have been able to wean down Nicardipine, see med titration flowsheet for details. Pt continues to be cooperative and verbalizes her needs. Has been taking pills whole with sips of apple juice with no issues. ST 110s on monitor.
[2025-01-21] MEDS: CATAPRES 0.2 MG PO ×3 (04:25→15:09)
[2025-01-21 04:40] LABS: Hematocrit 37.0 % (37.0-47.0); Hemoglobin 12.8 g/dL (12.0-16.0); Mean Corp Hgb Conc. 34.6 g/dL (33.0-37.0); Mean Corpuscular Volume 83.9 fL (81.0-99.0); Platelet Count 369 10^3/uL (130-400); Red Cell Dist. Width 13.4 % (11.5-14.5)
--- NOTE | 2025-01-21 04:49 | PTCARENOTE ---
Assessment unchanged. Pt has been asleep most of the shift but awakens easily to voice, still cooperative with care. HR has been lower overall, 100s-110s, only occasionally going up to 130s. Nicardipine drip turned off at 0130 and pt has remained
off of it. 99% on RA (spot checking pulse ox). [facility] guards at bedside.
[2025-01-21 04:55] LABS: Blood Urea Nitrogen 8 mg/dl (7-17); Calcium 9.7 mg/dl (8.4-10.2); Carbon Dioxide 26 mmol/L (22-30); Chloride 103 mmol/L (98-107); Estimated Creatinine Clearance > 125 ml/min; Glucose 128 mg/dl (70-99); Magnesium 1.9 mg/dl (1.6-2.3); Potassium 3.4 mmol/L (3.5-5.1); Sodium 136 mmol/L (135-145); eGFR > 60.00
[2025-01-21 05:25] LABS: Glucose - Point of Care 124 mg/dl (70-99)
[2025-01-21] MEDS: KCL 270 MEQ IV (06:26)
--- NOTE | 2025-01-21 07:15 | W.PN.HOSP.TC ---
Today's Communication/Plan
-
Stable for downgrade to Med/surg
cont opiate withdrawal protocol
Clonidine 0.2 mg tapered to Q8H
Last day for steroids
Ok to dc routine fingersticks
Assessment / Plan
Assessment / Plan
Initial Angioedema as noted in ED since spontaneously resolved. Unclear etiology
Physical Exam
General: Appears relatively comfortable at this time
HEENT: NormoCephalic, Pinpoint pupils b/l, initial Angioedema as noted above resolved at this time
Respiratory: Clear
Cardiac: S1/S2, Regular Rhythm, no murmur
GI: Soft, Non Tender and Non Distended
Musculoskeletal: No Edema extremities
Neuro: Lethargic but arousable oriented x3 conversant coherent
Psych: Calm
44[facility] w/ hx HTN NIDDM substance abuse p/w opioid withdrawal and transient severe angioedema unclear etiology.
#Opioid withdrawal in the setting of polysubstance use (fentanyl, xylazine, cocaine)
-ICU admit stable for downgrade to med surg Hospital day 3
-Tox screen positive for Fentanyl and Cocaine
-Continue buprenorphine for opioid withdrawal
-Monitor COWS score
-Scheduled Clonidine 0.2 mg Q6 tapered to Q8
-prn antiemetics, valium
-scheduled Tyelnol 1000 mg Q8 switched to prn Q6H
-Commissary Production Supervisor consult appreciated
-precedex gtt weaned off
#Suspected underlying Depression
Psych eval requested
#Transient lip/tongue swelling Angioedema as noted in ED/pictured above
-unclear etiology, since resolved
-Cont steroids Anastasiya-medrol 40 mg Q12 and IV Pepcid 20 mg Q12 for now, 01/21/25 last day for steroids
-Benadryl, Epinephrine prn
-Monitor for recurrence, continue close airway surveillance
-ENT eval appreciated
-Speech eval appreciated
#Headache
PRN Naproxen, Tylenol
#systolic Murmur
no significant Valve abn's noted on ECHO
murmur since resolved suspect 2/2 severe tachycardia
#intermittent fevers
suspect 2/2 to opiate withdrawal vs cocaine vs (less likely) Viral Syndrome
Procal neg, Blood cx's NGTD
abx not indicated
Tylenol prn
fevers since resolved
#Sinus Tachy
likely opiate withdrawal vs cocaine use vs (less likely) viral syndrome
stable respiratory status on room air, D-dimer elevation mild, unlikely PE
cont tx opiate withdrawal as above
Tachycardia resolving
#Leukocytosis
suspect steroid induced vs stress reactive
trending down
#Hypertensive Urgency/Emergency
nicardipine gtt weaned off
IV labetalol prn
Scheduled Clonidine as above
#reported hx DM
-updated A1c 6.3 Prediabetes
-consistently euglycemic on steroids
-ok to stop routine FS
#Hypokalemia
#Hypomagnesemia
monitor and replete as necessary
CODE STATUS full code
DVT prophylaxis SCDs Lovenox
I spent a total of 40 minutes with the patient or on the floor. More than 50% of this time involved counseling and coordination of care.
Anticipated Discharge: Today
Subjective/Interval History
-
Date of Service: January 21, 2025
Mental status improved, able to tolerate regular diet, lethargic but arousable, oriented x3. conversant coherent
Objective Data
-
Labs:
Laboratory Results
01/21/25
04:30
WBC 11.9 H
Hgb 12.8
Hct 37.0
Plt Count 369
Sodium 136
Potassium 3.4 L
Chloride 103
Carbon Dioxide 26
BUN 8
Creatinine 0.5 L
Glucose 128 H
Calcium 9.7
Vital Signs:
Vital Signs
Temp Pulse Resp BP Pulse Ox
99.9 F 112 17 135/75 100
01/21/25 03:04 01/21/25 06:00 01/21/25 06:00 01/21/25 06:00 01/20/25 20:00
I&O
01/20/25 01/21/25 01/22/25
06:59 06:59 06:59
Intake Total 1012.8 / 1142.0 3185.05 / 3185.05
Output Total 1125 / 1125
Balance -112.2 / 17.0 3185.05 / 3185.05
[2025-01-21] MEDS: SUBUTEX 2 MG SL ×2 (08:56→12:43)
[2025-01-21] MEDS: ZANAFLEX 2 MG PO ×2 (08:56→15:09)
[2025-01-21] MEDS: PEPCID 20 MG IV (08:58)
[2025-01-21] MEDS: NSS (PRESERVATIVE FREE) 8 ML IV (08:58)
--- NOTE | 2025-01-21 09:17 | PTOTSP ---
Speech Therapy
Patient seen bedside awake and responding appropriately. Some fatigue noted but did not interfere with swallowing assessment
Patient tolerated regular solid trials with somewhat prolonged but effective mastication despite limited dentition. Able to fully clear oral cavity. Thin liquid by single and consecutive straw sips tolerated with what appeared to be prompt,
well-coordinated swallows.
Recommend
1. Regular solids and thin liquids
2. Meds as tolerated.
3. No further ST indicated. Reconsult if signs of diet intolerance or aspiration.
--- NOTE | 2025-01-21 09:18 | PTCARENOTE ---
Pt rec'd from night RN, AOx3 soft spoken but pleasant and cooperative, no complaints at this time other than slight anxiety and feeling hungry. Speech therapist arrived to eval patient-cleared for regular diet / thin liquids. Per existing order to
advance diet as tolerated, pt ordered regular diet at this time, (safe tray no utensils) with assistance of guards at bedside. Pt tolerated all PO medications, Bps sl elevated, tachycardia remains but improved from prior. IVF and K rider infusing as
documented -see flowsheet. Plan discussed with patient, guards remain at bedside, pt is shackled by right ankle to bed, safe environment maintained with suicide precautions in place.
[2025-01-21] MEDS: SOLU-MEDROL PF 40 MG IV (09:36)
--- NOTE | 2025-01-21 10:56 | PTCARENOTE ---
Plan discussed in rounds, pt downgraded to med surg. Pt remains calm and cooperative, sleeping when undisturbed. Pt tolerated breakfast tray. Guards remain at bedside, care ongoing.
--- NOTE | 2025-01-21 12:00 | W.PN.INTV ---
Today's Communication / Plan
Recommendations
Continue opiate withdrawal protocol
Continue clonidine for blood pressure control
Advance diet
Psychiatry evaluation at some point
Discharge planning
Would continue steroids for 1 more day and discontinue
Please call back with questions or if there is recurrence of angioedema
Sign off
Assessment
-
44-year-old woman with history of drug abuse, sent from alf for opiate withdrawal symptoms including nausea or vomiting. While in the emergency room patient developed angioedema type findings. Initially transient. Associated with some
increased work of breathing. Resolved after several minutes initially spontaneously. We were consulted for evaluation and admission to the critical care unit for close airway monitoring.
Acute angioedema (lip/tongue swelling episodes in the emergency room)-unclear etiology
Opiate withdrawal
Leukocytosis-possibly stress-induced
Low-grade fevers-? From withdrawal
Heart murmur-unknown chronicity
Uncontrolled hypertension-unknown whether patient has chronic hypertensive disease.
Conditions present prior admission:
Smoker
Cocaine/fentanyl/xylazine abuse
Hypertension
Diabetes
Assessment and plan:
-
Transferred to the ICU with possibility of angioedema and airway compromise in the setting of opiate withdrawal.
No further episode of angioedema overnight
Unclear etiology of angioedema
Currently without stridor
Has not required further epinephrine or Benadryl
Continue famotidine
Continue steroids for 1 more day and then discontinue.
-
Not requiring oxygen supplementation
Not bronchospastic on exam
-
Speech evaluation cleared for diet
Advance diet as tolerated
Patient is hungry and asking to eat
-
Opiate withdrawal-symptoms ongoing. Improved.
Continue with protocol
Precedex has been discontinued for the last 24 hours. Patient cooperative and calm.
Hypertension improved, continue clonidine. May need to be titrated down
Defer to primary team
Patient apparently has some suicidal thoughts per nursing-will consult psychiatry. Discussed with primary team.
-
Hypertension-uncontrolled. Uncertain whether patient has underlying diagnosis.
Continue clonidine-blood pressure improved
Has not required as needed labetalol
Titrate as necessary.
-
Heart murmur-unknown chronicity
Echocardiogram with no valvulopathy. Normal LVEF.
No longer fevers
Blood cultures negative
Negative influenza
Negative COVID
Negative MRSA screen
Low-grade fevers likely related to withdrawal.
-
Electrolytes being repleted
Continue to monitor daily
-
Advanced diet
Aspiration precautions
-
Transferred to [facility]
Fall precautions
Critical care team will sign off. If there is recurrence of angioedema please call with questions.
Sign off
Subjective Dataa
Subjective Data
Date of Service:
Date of Service: January 21, 2025
Chief Complaint: [facility] Follow Up (Angioedema/opiate withdrawal)
Subjective:
Patient more alert and cooperative
Denies any sore throat
No further episode of angioedema
Feeling better
Review of Systems
General: Fever
Cardiopulmonary: Dyspnea (n) and Dyspnea on Exertion (n)
GI: Abdominal Pain (n) and Nausea (n)
Objective Data
Data Reviewed
Vital Signs / I&O / Oxygen:
Vital Signs
Temp Pulse Resp BP Pulse Ox
99.9 F 93 18 134/76 100
01/21/25 07:38 01/21/25 11:00 01/21/25 11:00 01/21/25 11:00 01/21/25 09:00
Intake and Output
01/20/25 01/21/25 01/22/25
06:59 06:59 06:59
Intake Total 1012.8 / 1142.0 3185.05 / 3185.05 500 / 500
Output Total 1125 / 1125
Balance -112.2 / 17.0 3185.05 / 3185.05 500 / 500
SaO2 100
Physical Exam
General: Comfortable
HEENT: Normocephalic
Cardiovascular: S1-S2 and Murmur
Respiratory: Clear and Non-Labored Respirations
GI: Soft and Distended
Neurology: Awake, Alert, AO x 3, No Motor Deficits and Other (Now cooperative and calm.)
Skin: Warm
Labs/Micro/Reports
Lab Data
01/21/25 04:30
01/21/25 04:30
Microbiology
01/20/25 10:40 Blood/Venous Blood Culture - Preliminary
No Growth in 24 hours- Final report to follow
01/20/25 09:58 Blood/Venous Blood Culture - Preliminary
No Growth in 24 hours- Final report to follow
01/19/25 19:19 Nose MRSA Screen - Final
No Methicillin Resistant Staphylococcus aureus isolated.
01/20/25 16:06 Nasal Swab Influenza Types A & B (FER) - Final
Negative for Influenza A & B, NAAT
Negative results must be combined with clinical observations
and patient history.
Nucleic Acid Amplification test (NAAT)performed on the
[employer] NOW platform.
--- NOTE | 2025-01-21 13:32 | W.PN.UPDATE ---
Update Note
Progress Note Update
attempted to do consult today but patient said she did not wish to talk. she c/o severe headache. agreed to talk to psych tomorrow. ordered naproxen which patient said helps w chen 500 mg stat then [address] tripp texted.
[2025-01-21] MEDS: NAPROSYN 500 MG PO (13:41)
--- NOTE | 2025-01-21 13:50 | PTCARENOTE ---
Pt c/o 03/25 headache pain in front of head, orders rec'd for stat dose naproxen, administered - see AUG. Pt resting quietly when undisturbed. Multiple offers to toilet and provide hygeine care to patient declined. Pt picking at leftover food from
breakfast tray, does not want to order lunch. Guards remain at bedside, 1:1 obs for previous admission of suicidal thoughts ongoing.
--- NOTE | 2025-01-21 14:27 | CM ---
Discharge POC: Return to [facility].
[2025-01-21] MEDS: SENOKOT-S 1 TABLET PO (15:12)
--- NOTE | 2025-01-21 15:14 | PTCARENOTE ---
Pt assigned clean bed, 335. Guards and patient updated. Pt voided in bathroom, PRN Sennokot administered along with scheduled medications at this time. Awaiting receiving RN to call back to take report.
[2025-01-21] MEDS: SUBUTEX 4 MG SL ×2 (17:59→22:02)
[2025-01-21] MEDS: LOVENOX 40 MG SC (17:59)
[2025-01-21] MEDS: PEPCID 20 MG PO (20:45)
[2025-01-22] MEDS: OXYCONTIN (CONTROLLED RELEASE) 20 MG PO ×3 (00:04→15:24)
[2025-01-22] MEDS: CATAPRES 0.2 MG PO ×3 (00:04→15:24)
[2025-01-22 05:52] LABS: Hematocrit 34.3 % (37.0-47.0); Hemoglobin 11.7 g/dL (12.0-16.0); Mean Corp Hgb Conc. 34.1 g/dL (33.0-37.0); Mean Corpuscular Volume 85.1 fL (81.0-99.0); Platelet Count 309 10^3/uL (130-400); Red Cell Dist. Width 13.3 % (11.5-14.5)
[2025-01-22 06:17] LABS: Blood Urea Nitrogen 25 mg/dl (7-17); Calcium 9.5 mg/dl (8.4-10.2); Carbon Dioxide 30 mmol/L (22-30); Chloride 103 mmol/L (98-107); Estimated Creatinine Clearance 106 ml/min; Glucose 109 mg/dl (70-99); Magnesium 2.1 mg/dl (1.6-2.3); Potassium 4.0 mmol/L (3.5-5.1); Sodium 136 mmol/L (135-145); eGFR > 60.00
--- NOTE | 2025-01-22 07:24 | W.PN.HOSP.TC ---
Today's Communication/Plan
-
discharge
Assessment / Plan
Assessment / Plan
Initial Angioedema as noted in ED since spontaneously resolved. Unclear etiology
Physical Exam
General: Appears relatively comfortable at this time
HEENT: NormoCephalic, Pinpoint pupils b/l, initial Angioedema as noted above resolved
Respiratory: Clear
Cardiac: S1/S2, Regular Rhythm, no murmur
GI: Soft, Non Tender and Non Distended
Musculoskeletal: No Edema extremities
Neuro: AOx3 conversant coherent
Psych: Calm
44F from group home w/ hx HTN NIDDM substance abuse p/w opioid withdrawal and transient severe angioedema unclear etiology possibly 2/2 polysubstance abuse.
#Opioid withdrawal in the setting of polysubstance use (fentanyl, xylazine, cocaine)
-ICU admit stable for downgrade to [facility] Hospital day 3
-Tox screen positive for Fentanyl and Cocaine
-Continue buprenorphine for opioid withdrawal
-Monitor COWS score
-Scheduled Clonidine 0.2 mg Q6 tapered to Q8
-prn antiemetics, valium
-scheduled Tyelnol 1000 mg Q8 switched to prn Q6H
-Torch Operator consult appreciated
-precedex gtt weaned off
#Suspected underlying Depression
#Reported Suicidal Ideation as noted by nurse/staff
Psych eval appreciated
per discussion with psych, noted patient has no plans of harming herself or others, wants to call her family for bail as soon as she returns to group home, future planning, stable for discharge, no additional psych medications recommended
#Transient lip/tongue swelling Angioedema as noted in ED/pictured above
- unclear etiology, possibly d/t polysubstance abuse, since resolved
- Completed steroids treatment and pepcid
- Benadryl, Epinephrine prn has not required since ED stay
- no new recurrences noted since ED stay.
- ENT eval appreciated
- Speech eval appreciated
#Headache
PRN Naproxen, Tylenol
#systolic Murmur
no significant Valve abn's noted on ECHO
murmur since resolved suspect 2/2 prior severe tachycardia
#intermittent fevers
suspect 2/2 to opiate withdrawal vs cocaine vs (less likely) Viral Syndrome
Procal neg, Blood cx's NGTD
abx not indicated
Tylenol prn
fevers since resolved
#Sinus Tachy
likely opiate withdrawal vs cocaine use vs (less likely) viral syndrome
stable respiratory status on room air, D-dimer elevation mild, unlikely PE
cont tx opiate withdrawal as above
Tachycardia since resolved
#Leukocytosis
suspect steroid induced vs stress reactive
resolved
#Hypertensive Urgency/Emergency
nicardipine gtt weaned off
IV labetalol prn (has not required since 01/19/25)
Scheduled Clonidine as above
#reported hx DM
-updated A1c 6.3 Prediabetes
-consistently euglycemic on steroids
-ok to stop routine FS
#Hypokalemia
#Hypomagnesemia
Repleted
CODE STATUS full code
DVT prophylaxis SCDs Lovenox
Medically stable for discharge with outpatient follow up recommendations.
Total Time Preparing Discharge ___40____ minutes including examination of the patient, summary of the hospital stay, instructions for continuing care to all relevant caregivers; and preparation of discharge records, prescriptions, and referral
forms if necessary.
Anticipated Discharge: Today
Subjective/Interval History
-
Date of Service: January 22, 2025
No acute distress, appears comfortable. Denies new acute issues at this time including pain.
Objective Data
-
Labs:
Laboratory Results
01/22/25
05:25
WBC 9.8
Hgb 11.7 L
Hct 34.3 L
Plt Count 309
Sodium 136
Potassium 4.0
Chloride 103
Carbon Dioxide 30
BUN 25 H
Creatinine 0.8
Glucose 109 H
Calcium 9.5
Vital Signs:
Vital Signs
Temp Pulse Resp BP Pulse Ox
98.1 F 86 18 134/94 100
01/21/25 23:55 01/22/25 00:04 01/21/25 23:55 01/22/25 00:04 01/21/25 23:55
I&O
01/21/25 01/22/25 01/23/25
06:59 06:59 06:59
Intake Total 3185.05 / 3185.05 1094 / 1094
Balance 3185.05 / 3185.05 1094 / 1094
[2025-01-22 07:40] VITALS: BP 151/83
[2025-01-22] MEDS: SUBUTEX 4 MG SL ×2 (08:55→15:27)
[2025-01-22] MEDS: PEPCID 20 MG PO (08:55)
[2025-01-22 15:03] VITALS: BP 129/74
[2025-01-22] MEDS: SUBUTEX SL (15:27)
--- NOTE | 2025-01-22 16:00 | CON.MD ---
Consultation - Medical
-
Patient evaluated at bedside, chart reviewed. This is a 44 yr old F with PMH of HTN, NIDDM, polysubstance abuse (fentanyl, xylazine, cocaine), presenting initially in police custody with opiate withdrawal & transient angioedema. Angioedema of
unclear cause but has since resolved. Opiate abuse has mostly improved as well since admission, although still experiencing some symptoms they are not acutely disruptive and should continue to improve over the next week or so.
Psychiatry was consulted due to concerns of possible depression as well as in context of opiate withdrawal, which as noted has been managed since and patient is currently stable in that regard. Patient declined prior attempts to be interviewed by
psychiatry and this morning although pleasant, did not want to in engage in an interview as she reported that she was feeling 'pretty good' and 'much better' and was just ready to get out of the hospital.
Shortly prior to discharge, patient said to nursing 'I want to kill myself' when taking her medication and psychiatry was alerted, at which time I returned to attempt to speak to patient in more detail. She is currently in police custody and has 2
guards present in the hospital room - although they are not allowed to leave patient alone due to legal and safety reasons, they were kind enough to step out to the [place] so as to give patient some privacy.
Patient admitted that she is not suicidal and does not want to , but rather that she's 'over it' (regarding arrest) and does not want to go back to the [facility] and was hoping that she could stay in the hospital so as to call family for bail. I
explained the process to patient regarding placement in inpatient facilities and the length of time it could take for her to actually arrive at a psychiatric hospital, she responded with 'oh no no, I don't want to go to the hospital, I just want to
make a phone call and get bailed out'. Patient did say that she would be able to make a call once she was completed booking in the snf and that she had family that would bail her out, however it appears that she was hoping to circumvent the booking
process and be bailed out from here. Once the patient understood the process she was quite adamant that she is not suicidal and although depressed/overwhelmed about substance and legal issues, is not in need of acute psychiatric care at this time.
Opiate/cocaine/other hallucinogen abuse, severe
adjustment disorder
MSE: female, good eye contact, pleasant, speech soft/quiet but normal rate & rhythm. Smiling spontaneously & appropriately. Mood depressed, affect constricted/down but appropriate. Denies SI/HI/AVH/delusions. Thought process is linear & goal
directed. Memory not formally tested. AAOx3. Insight/judgement poor.
Continue current regimen, no changes needed at this time.
Patient is not currently in need of acute psychiatric inpatient placement - she can likely benefit from substance abuse treatment and therapy, which may be helped by a psychotropic, however this is something she would need on an outpatient basis
(and is not interested in pursuing at this time).
--- NOTE | 2025-01-22 16:58 | W.DCSUMMARY ---
Discharge Summary
Discharge Data
Date of Admission: 01/19/25
Date of Discharge: 01/22/25
-
Pending Results: No
Discharge Plan
-
Patient Disposition: Group Home
Discharge Diagnosis/Procedures: Opioid withdrawal in the setting of polysubstance use (fentanyl, xylazine, cocaine)
Transient lip/tongue swelling Angioedema possibly due to polysubstance abuse, since resolved
Hypertensive Urgency likely secondary to Opioid Withdrawal
Prediabetes
Obesity
Condition: Fair
Diet: Diabetic, Carb Controlled
Activity: As tolerated
Driving Restrictions: As prior to admission
Bathing Restrictions: None
Activity Restrictions/Additional Instructions:
Follow up with primary care provider in 1-2 days of discharge.
Buprenorphine and Clonidine prescribed for treatment opioid withdrawal. Follow up with primary care provider and/or other healthcare provider involved in your care for further taper instructions.
Please take medications as prescribed/recommended and follow up with primary care provider and/or other healthcare provider involved in your care for refills and/or further adjustment to your medication regimen as necessary.
Referrals:
[facility] [Family Provider, General]
Prescriptions:
New
clonidine HCl 0.2 mg Tablet
0.2 mg PO Q8 Qty: 21 0RF
buprenorphine HCl 8 mg Tablet, Sublingual
8 mg sublingual BID@0800,2000 Qty: 1 0RF
Rx Instructions:
One dose this evening 01/22/25
buprenorphine HCl 8 mg Tablet, Sublingual
16 mg sublingual DAILY@0800 Qty: 7 0RF
Continued
ondansetron HCl 4 mg Tablet
4 mg PO TIDPRN PRN (Reason: nausea)
Rx Instructions:
give IM if npo
loperamide 2 mg Tablet
2 mg PO TIDPRN PRN (Reason: diarrhea)
Discontinued
clonidine HCl 0.1 mg Tablet
0.1 mg PO DIRECTED
Rx Instructions:
take 1 tablet tid then 1 tablet bid then half a tablet bid
acetaminophen-codeine 300-30 mg Tablet
1 tab PO DIRECTED
Rx Instructions:
take 2 tablets tid then 2 tablets bid then 1 tablet bid then 1 a tablet hs
Discharge Orders:
Discharge Patient (As Directed); Ordered 01/22/25
Ordered By: Shell Morrissey
Discharge Date and Time
Print Language: FRENCH
[2025-01-22] MEDS: LOVENOX SC (17:31)
== END 2025-01-22 19:11 | DRG 897 ==
LOC: 3 WEST ACU 15:44
PROVIDERS: Student in an Organized Health Care Education/Training Program; ADMITTING PHYSICIAN Internal Medicine; ATTENDING PHYSICIAN Internal Medicine; CONSULT PHYSICIAN Internal Medicine Critical Care Medicine; CONSULT PHYSICIAN Otolaryngology Facial Plastic Surgery; EMERGENCY PHYSICIAN Emergency Medicine; OTHER PHYSICIAN Psychiatry & Neurology Psychiatry
DX: F11.23 Opioid dependence with withdrawal (principal); R45.851 Suicidal ideations; F14.20 Cocaine dependence, uncomplicated; I16.1 Hypertensive emergency; F17.200 Nicotine dependence, unspecified, uncomplicated; T78.3XXA Angioneurotic edema, initial encounter; X58.XXXA Exposure to other specified factors, initial encounter; I10 Essential (primary) hypertension; F43.20 Adjustment disorder, unspecified; D72.829 Elevated white blood cell count, unspecified; F31.9 Bipolar disorder, unspecified; E66.9 Obesity, unspecified; R73.03 Prediabetes; E87.6 Hypokalemia; E83.42 Hypomagnesemia; Z11.52 Encounter for screening for COVID-19; Z68.31 Body mass index [BMI] 31.0-31.9, adult
CPT/HCPCS: 71045; 80048; 80053; 80306; 80307; 82077; 82962; 83036; 83605; 83690; 83735; 84100; 84145; 84703; 85025; 85027; 85379; 85610; 85730; 87040; 87070; 87502; 87811; 92526; 92610; 93005; 93306; 96372; 96374; 96375; 99285